=== PATIENT | female | born 1940 | race Caucasian/White ===

== ENCOUNTER 2023-07-01 11:56 | Emergency (ER) | payer OTHER, SELFPAY ==
[2023-07-01 11:59] VITALS: BP 119/87; BMI 25.3
--- NOTE | 2023-07-01 12:52 | ED.GENMED ---
History of Present Illness
General
Chief Complaint: Fall
Source: patient and family
Exam Limitations: none
Time Seen by Provider: 07/01/23 12:38
Nursing documentation reviewed up to this point in time: agreed with
Travel History
Have you had any contact with someone who has COVID-19?: No
Do you have any symptoms of coronavirus? Fever > 100 degrees, chills, cough, shortness of breath, sore throat, loss of taste or smell, muscle aches, or headache?: No
History of Present Illness
History of Present Illness:
83-year-old female presents emergency room after a fall yesterday. She fell backwards while putting sign up in her garden. She went to [facility] emergency department and a head CT and lumbar spine x-rays were performed. She states she
waited in the emergency department but was never seen, so she left. She has been able to walk. She does not take any blood thinners.
Past History
Past History
ED Past Medical History: HTN
ED Past Surgical History: None
Social History
Tobacco: Non-smoker
Alcohol: None
Drug: None
Living: alone
Review of Systems
Review of Systems
Allergies reviewed?: Yes
All Other Systems: Not applicable
Constitutional: Reports no symptoms
EENT: Reports no symptoms
Respiratory: Reports no symptoms
Cardiac: Reports no symptoms
ABD/GI: Reports no symptoms
: Reports no symptoms
Musculoskeletal: Reports back pain
Skin: Reports no symptoms
Neurological: Reports no symptoms
Endocrine: Reports no symptoms
Hematologic/Lymphatic: Reports no symptoms
Psychiatric: Reports no symptoms
Phy Exam
Physical Exam
Physical Exam:
Physical Exam
General: no apparent distress, not acutely ill
Neck: supple. no meningeal signs. normal posterior pharynx
Heart: s1/s2 regular rate and rhythm, no murmur. equal radial
pulses.
HEENT: Pupils equal round reactive to light, EOMI
Lungs: no acute respiratory distress. clear bilaterally
Abdomen: normal bowel sounds. not tender. no CVAT
Neuro: alert and oriented. no focal neurological deficits cranial nerves II through XII intact
Skin: no rash
Psychiatric: well kept. interactive and cooperative
Extremities: no edema. no calf tenderness. negative homans. good distal pulses
Course
Vital Signs
Initial and Last Documented VS:
Initial Vital Signs
Temp Pulse Resp BP Pulse Ox
98.5 F 76 16 119/87 99
07/01/23 11:59 07/01/23 11:59 07/01/23 11:59 07/01/23 11:59 07/01/23 11:59
Last Documented Vital Signs
Temp Pulse Resp BP Pulse Ox
98.5 F 76 16 119/87 99
07/01/23 11:59 07/01/23 11:59 07/01/23 11:59 07/01/23 11:59 07/01/23 11:59
MDM/Problems Addressed
Differential Diagnosis Includes:
intracranial hemorrhage, cervical spine fracture, lumbar fracture
MDM/Problems Addressed:
83 yo female with fall. No signs of intracranial hemorrhage or cervical spine fracture. No signs of coccyx fracture. CT head and cervical spine along with lumbar x-ray no signs of fracture.
*Radiology
Radiology exam reviewed: radiology read reviewed (CT scan report reviewed from 06/10/2023 at [facility] shows no signs of cervical spine fracture, intracranial hemorrhage, lumbar spine x-ray or coccyx fracture)
*Pulse Oximetry
Patient hypoxic: no
*EKG
Interpreted by ED Provider?: NA
*Plaster Maker Interpretation
Rate: Plaster Maker- N/A
*Critical Care Note
Total Time (30-74mins, 75-104mins- exclusive of procedures): Not Applicable
Data Reviewed
Review of Other/Old Records Reveals: Radiology Studies (Radiology report reviewed from [facility])
Source: previous hospital records
Patient Management
Social determinants of health affecting care: Living situation
Escalation/DeEscalation of care consider admission/obs:
Admit not indicated
ED Attending Note
-
Portions of this chart may have been created with voice recognition software.� Occasional wrong word or��sound alike� substitutions may have occurred due to the inherent limitations of voice recognition software.
Discharge Plan
Departure
Patient Disposition: Home (Routine Discharge)
Date of Disposition: 07/01/23
Time of Disposition: 14:54
Patient with high blood pressure during this ER visit?: No
Condition: Good
Discharge Problem:
Fall, Coccyx contusion
Instructions: Preventing falls in adults, Coccyx Injury ED
Referrals:
Godfrey Russell, DO [Family Provider] - Call in 1-3 days for appt
Interventions
Interventions:
*Risk Screen - Suicide Last Done: 07/01/23 11:59
*Neglect/Abuse Screening Last Done: 07/01/23 11:59
ED- Fall Risk Assessment Last Done: 07/01/23 12:21
*ED COVID-19 Vaccine History Last Done: 07/01/23 11:59
ED-Musculoskeletal Assessment Last Done: 07/01/23 12:21
ED- Neurological Assessment Last Done: 07/01/23 12:21
ED-Skin Assessment Last Done: 07/01/23 12:36
Discharge Date and Time
Print Language: GERMAN
== END 2023-07-01 15:13 | disposition home or self-care (01) ==
LOC: EMR 11:56
PROVIDERS: EMERGENCY PHYSICIAN Emergency Medicine; FAMILY PHYSICIAN Family Medicine
DX: S30.0XXA Contusion of lower back and pelvis, initial encounter (principal); W19.XXXA Unspecified fall, initial encounter
CPT/HCPCS: 99282